=== PATIENT | female | born 1945 | race Caucasian/White ===

== ENCOUNTER 2023-02-02 13:51 | Inpatient (IN) | payer MEDICARE, OTHER ==
[2023-02-02 15:11] LABS: #Eosinphils 0.1 thou/uL (0.0-0.7); #Monocytes 0.8 thou/uL (0.11-0.59); %Basophils 0.3 % (0.0-1.0); %Eosinophils 1.1 % (0.0-10.0); %Lymphocytes 18.3 % (21.0-51.0); %Monocytes 8.5 % (0.0-10.0); %Neutrophils 71.4 % (42.0-75.0); Hematocrit 29.3 % (36.0-47.0); Hemoglobin 10.7 g/dL (12.0-16.0); Mean Corpuscular HGB CONC 36.5 g/dL (32.0-36.0); Mean Corpuscular Hemoglobin 33.1 pg (27.0-31.0); Mean Corpuscular Volume 90.7 fl (78.0-98.0); Mean Platelet Volume 9.7 fL (7.4-10.4); Platelet Count 293 10x3/uL (130-400); RBC Distribution Width 13.1 % (11.5-14.5); Red Blood Cell (RBC) Count 3.23 mill/uL (4.20-5.40); White Blood Cell (WBC) Count 9.7 10x3/uL (4.8-10.8)
[2023-02-02] MEDS ORDERED: Ondansetron PF 4 MG/2 ML Vial ONE (15:28)
[2023-02-02] MEDS ORDERED: Dicyclomine 20 MG TAB ONE (15:28)
[2023-02-02] MEDS ORDERED: Iopamidol-370 76% 500 ML MDV (1 ML CHARGE) ONE (15:30)
[2023-02-02 15:41] LABS: ALT (SGPT) 11 U/L (8-55); AST (SGOT) 21 U/L (5-34); Albumin 3.8 g/dL (3.4-4.8); Alkaline Phosphatase 65 U/L (40-110); Anion Gap 16 mmol/L (10-20); BUN (Urea Nitrogen) 16 mg/dL (9.8-20.1); Bilirubin, Total 0.5 mg/dL (0.2-1.2); Calc. Creatinine Clearance 0 mL/min (70-130); Calcium 9.2 mg/dL (7.8-10.44); Carbon Dioxide 24 mmol/L (23-31); Chloride 102 mmol/L (98-107); Estimated GFR 49; Globulin 2.9 g/dL (2.4-3.5); Glucose 97 mg/dL (83-110); Lipase 13 U/L (8-78); Protein, Total 6.7 g/dL (5.8-8.1); Sodium 140 mmol/L (136-145)
[2023-02-02 16:30] LABS: Bilirubin Negative (Negative); Blood, Urine Negative (Negative); CAUTI Indications for Culture Pelvic or flank pain; Clarity Turbid (Clear); Glucose, Urine (Dipstick) Normal (Negative); Ketone, Urine Negative (Negative); Leukocyte 500 Leu/uL (Negative); Nitrite Negative (Negative); Protein, Urine (Dipstick) 70 mg/dL (Neg-Trace); RBC/HPF 0-3 HPF (0-3); Specific Gravity, Urine 1.019 (1.002-1.036); Urobilinogen Normal mg/dL (Less than 2); WBC/HPF Greater than 50 HPF (0-3)
[2023-02-02] MEDS ORDERED: Potassium Chloride 20 MEQ TAB ONE (16:32)
[2023-02-02] MEDS ORDERED: Potassium Chloride 20 MEQ/100 ML PREMIX BAG ONE (16:36)
[2023-02-02] MEDS ORDERED: Magnesium 2 GM/50 ML BAG (IN WATER) ONE (16:36)
[2023-02-02 16:40] LABS: Bacteria/HPF 2+ HPF (None Seen)
[2023-02-02 16:42] LABS: Urine Culture Reflex Yes Yes
[2023-02-02] MEDS ORDERED: Electrolyte Replacement Protocol 1 EACH FS SCH (18:15)
[2023-02-02] MEDS ORDERED: Acetaminophen 650 MG Suppository PR PRN (18:17)
[2023-02-02] MEDS ORDERED: Ondansetron PF 4 MG/2 ML Vial IVP PRN (18:17)
[2023-02-02] MEDS ORDERED: Ondansetron ODT 4 MG TAB PO PRN (18:17)
[2023-02-02] MEDS ORDERED: Piperacillin/Tazobactam 3.375 GM in Sodium Chloride 0.9% 100 ML IVPB SCH (18:45)
[2023-02-02] MEDS: Potassium Chloride 20 MEQ in Lactated Ringer's 1,000 ML IV SCH (20:29)
[2023-02-02 22:27] LABS: Anion Gap 15 mmol/L (10-20); BUN (Urea Nitrogen) 13 mg/dL (9.8-20.1); Calc. Creatinine Clearance 0 mL/min (70-130); Calcium 9.6 mg/dL (7.8-10.44); Carbon Dioxide 23 mmol/L (23-31); Chloride 106 mmol/L (98-107); Estimated GFR 53; Glucose 124 mg/dL (83-110); Magnesium 2.3 mg/dL (1.6-2.6); Potassium 2.7 mmol/L (3.5-5.1); Sodium 141 mmol/L (136-145)
[2023-02-02 22:31] VITALS: BMI 22.8
[2023-02-02] MEDS: lamoTRIgine 100 MG TAB PO SCH (22:32)
[2023-02-02] MEDS: Atorvastatin Calcium 10 MG TAB PO SCH (22:32)
[2023-02-03 01:04] LABS: Campy jejuni + coli by PCR Negative (Negative); STEC Shiga Toxin 1+2 Negative (Negative); Salmonella spp. by PCR Negative (Negative); Shigella spp + EIEC by PCR Negative (Negative)
[2023-02-03] MEDS: Piperacillin/Tazobactam 3.375 GM in Sodium Chloride 0.9% 100 ML IVPB SCH ×3 (02:48→18:37)
[2023-02-03] MEDS: Levothyroxine Sodium 50 MCG TAB PO SCH (06:40)
[2023-02-03] MEDS: Potassium Chloride 20 MEQ TAB PO SCH ×4 (08:32→22:49)
[2023-02-03 08:39] LABS: #Eosinphils 0.1 thou/uL (0.0-0.7); #Monocytes 0.6 thou/uL (0.11-0.59); #Neutrophils 5.7 thou/uL (1.40-6.50); %Basophils 0.4 % (0.0-1.0); %Eosinophils 1.5 % (0.0-10.0); %Lymphocytes 14.5 % (21.0-51.0); %Monocytes 7.7 % (0.0-10.0); %Neutrophils 75.4 % (42.0-75.0); Hematocrit 26.8 % (36.0-47.0); Hemoglobin 9.7 g/dL (12.0-16.0); Mean Corpuscular HGB CONC 36.2 g/dL (32.0-36.0); Mean Corpuscular Hemoglobin 32.3 pg (27.0-31.0); Mean Corpuscular Volume 89.3 fl (78.0-98.0); Mean Platelet Volume 9.3 fL (7.4-10.4); Platelet Count 259 10x3/uL (130-400); RBC Distribution Width 13.2 % (11.5-14.5); White Blood Cell (WBC) Count 7.6 10x3/uL (4.8-10.8)
[2023-02-03] MEDS: Fish Oil 1,000 MG CAP PO SCH (08:42)
[2023-02-03] MEDS: Ascorbic Acid 500 mg Chewable Tablet PO SCH (08:42)
[2023-02-03] MEDS: Gabapentin 300 MG CAP PO SCH ×3 (08:43→20:23)
[2023-02-03] MEDS: Aspirin 81 mg Enteric Coated Tablet PO SCH (08:44)
[2023-02-03] MEDS: lamoTRIgine 100 MG TAB PO SCH ×2 (08:44→20:23)
[2023-02-03] MEDS: Sertraline 100 MG TAB PO SCH (08:44)
[2023-02-03] MEDS ORDERED: Potassium Chloride 20 MEQ in Lactated Ringer's 1,000 ML IV SCH ×4 (08:45→15:15)
[2023-02-03] MEDS ORDERED: ASCORBIC ACID 250 MG PO SCH (09:00)
[2023-02-03 09:02] LABS: Anion Gap 10 mmol/L (10-20); BUN (Urea Nitrogen) 12 mg/dL (9.8-20.1); Calc. Creatinine Clearance 53 mL/min (70-130); Calcium 8.6 mg/dL (7.8-10.44); Carbon Dioxide 27 mmol/L (23-31); Chloride 108 mmol/L (98-107); Estimated GFR 73; Glucose 114 mg/dL (83-110); Magnesium 1.6 mg/dL (1.6-2.6); Sodium 143 mmol/L (136-145)
[2023-02-03 09:21] LABS: Potassium 2.3 mmol/L (3.5-5.1)
[2023-02-03] MEDS ORDERED: Potassium Chloride 40 MEQ in Premix Bag 1 BAG IVPB SCH ×2 (09:30→16:45)
[2023-02-03] MEDS ORDERED: Magnesium 2 GM/50 ML(in water) 2 GM in Premix Bag 1 BAG IVPB SCH (10:00)
[2023-02-03] MEDS ORDERED: Loperamide HCl 2 MG CAP PO PRN ×2 (11:59)
[2023-02-03] MEDS ORDERED: Sodium Chloride 0.65% Nasal 44 ML BOT EA NARE PRN (11:59)
[2023-02-03] MEDS: Potassium Chloride 20 MEQ in Premix Bag 1 BAG IVPB SCH ×4 (13:37→20:21)
[2023-02-03 14:18] LABS: Phosphorus 2.5 mg/dL (2.3-4.7)
[2023-02-03 14:26] LABS: Potassium 2.5 mmol/L (3.5-5.1)
[2023-02-03] MEDS: Potassium Chloride 20 MEQ in Lactated Ringer's 1,000 ML IV SCH (14:58)
[2023-02-03] MEDS: Atorvastatin Calcium 10 MG TAB PO SCH (20:23)
[2023-02-03 21:40] LABS: Potassium 3.1 mmol/L (3.5-5.1)
[2023-02-03] MEDS ORDERED: GoLYTELY 4,000 ml Bottle PO SCH (22:30)
[2023-02-04] MEDS: Piperacillin/Tazobactam 3.375 GM in Sodium Chloride 0.9% 100 ML IVPB SCH ×2 (01:36→12:52)
[2023-02-04 04:40] LABS: Hematocrit 24.5 % (36.0-47.0); Hemoglobin 8.6 g/dL (12.0-16.0); Platelet Count 254 10x3/uL (130-400)
[2023-02-04 05:06] LABS: Anion Gap 11 mmol/L (10-20); BUN (Urea Nitrogen) 9 mg/dL (9.8-20.1); Calc. Creatinine Clearance 55 mL/min (70-130); Calcium 8.4 mg/dL (7.8-10.44); Carbon Dioxide 23 mmol/L (23-31); Chloride 112 mmol/L (98-107); Estimated GFR 76; Glucose 106 mg/dL (83-110); Potassium 2.8 mmol/L (3.5-5.1); Sodium 143 mmol/L (136-145)
[2023-02-04] MEDS: Potassium Chloride 20 MEQ in Premix Bag 1 BAG IVPB SCH ×3 (05:33→12:52)
[2023-02-04] MEDS: Levothyroxine Sodium 50 MCG TAB PO SCH (05:34)
[2023-02-04] MEDS: Ascorbic Acid 500 mg Chewable Tablet PO SCH (08:20)
[2023-02-04] MEDS: Sertraline 100 MG TAB PO SCH (08:20)
[2023-02-04] MEDS: lamoTRIgine 100 MG TAB PO SCH ×2 (08:20→20:02)
[2023-02-04] MEDS: Fish Oil 1,000 MG CAP PO SCH (08:21)
[2023-02-04] MEDS: Aspirin 81 mg Enteric Coated Tablet PO SCH (08:21)
[2023-02-04] MEDS: Gabapentin 300 MG CAP PO SCH ×3 (08:21→20:02)
[2023-02-04] MEDS: Potassium Chloride 20 MEQ TAB PO SCH ×2 (08:22→12:51)
[2023-02-04] MEDS ORDERED: Piperacillin/Tazobactam 3.375 GM VIAL ONE (10:20)
[2023-02-04] MEDS ORDERED: Sodium Chloride 0.9% 100 ML ONE (10:20)
[2023-02-04] MEDS ORDERED: PROPOFOL 200 MG/20 ML VIAL ONE (10:44)
[2023-02-04] MEDS ORDERED: ePHEDrine Sulfate 50 MG/10 ML VIAL ONE (10:44)
[2023-02-04] MEDS ORDERED: Lidocaine 1% PF 5 ML VIAL ONE (10:44)
[2023-02-04] MEDS: Loperamide HCl 2 MG CAP PO SCH ×3 (12:53→20:02)
[2023-02-04 13:21] LABS: Magnesium 1.3 mg/dL (1.6-2.6); Potassium 3.4 mmol/L (3.5-5.1)
[2023-02-04] MEDS ORDERED: Magnesium Sulfate In Water 4 GM in Premix Bag 1 BAG IVPB SCH (14:15)
[2023-02-04 17:34] LABS: Anion Gap 13 mmol/L (10-20); BUN (Urea Nitrogen) 7 mg/dL (9.8-20.1); Calc. Creatinine Clearance 57 mL/min (70-130); Calcium 8.4 mg/dL (7.8-10.44); Carbon Dioxide 21 mmol/L (23-31); Chloride 114 mmol/L (98-107); Estimated GFR 80; Glucose 104 mg/dL (83-110); Potassium 3.5 mmol/L (3.5-5.1); Sodium 144 mmol/L (136-145)
[2023-02-04] MEDS ORDERED: Potassium Chloride 20 MEQ TAB PO SCH (17:45)
[2023-02-04] MEDS: Haloperidol 1 MG TAB PO SCH (17:59)
[2023-02-04] MEDS: cefTRIAXone\\ROCEPHIN 1 GM in Sodium Chloride 0.9% 100 ML IVPB SCH (18:00)
[2023-02-04] MEDS: Atorvastatin Calcium 10 MG TAB PO SCH (20:02)
[2023-02-04] MEDS ORDERED: QUEtiapine 25 MG TAB PO SCH (21:00)
[2023-02-05] MEDS: Acetaminophen 325 MG TAB PO PRN ×3 (04:30→20:48)
[2023-02-05] MEDS: Levothyroxine Sodium 50 MCG TAB PO SCH (04:31)
[2023-02-05 04:47] LABS: #Eosinphils 0.2 thou/uL (0.0-0.7); #Monocytes 0.6 thou/uL (0.11-0.59); #Neutrophils 5.5 thou/uL (1.40-6.50); %Basophils 0.4 % (0.0-1.0); %Eosinophils 2.1 % (0.0-10.0); %Lymphocytes 21.6 % (21.0-51.0); Hematocrit 25.4 % (36.0-47.0); Mean Corpuscular HGB CONC 35.4 g/dL (32.0-36.0); Mean Corpuscular Hemoglobin 32.7 pg (27.0-31.0); Mean Corpuscular Volume 92.4 fl (78.0-98.0); Mean Platelet Volume 9.6 fL (7.4-10.4); Platelet Count 257 10x3/uL (130-400); RBC Distribution Width 13.6 % (11.5-14.5); Red Blood Cell (RBC) Count 2.75 mill/uL (4.20-5.40); White Blood Cell (WBC) Count 8.1 10x3/uL (4.8-10.8)
[2023-02-05 05:19] LABS: Anion Gap 10 mmol/L (10-20); BUN (Urea Nitrogen) 5 mg/dL (9.8-20.1); Calc. Creatinine Clearance 62 mL/min (70-130); Calcium 8.2 mg/dL (7.8-10.44); Carbon Dioxide 21 mmol/L (23-31); Chloride 114 mmol/L (98-107); Estimated GFR 88; Glucose 108 mg/dL (83-110); Potassium 3.4 mmol/L (3.5-5.1); Sodium 142 mmol/L (136-145)
[2023-02-05] MEDS ORDERED: Potassium Chloride 20 MEQ TAB PO SCH (08:00)
[2023-02-05] MEDS ORDERED: FLU VACC QS2023-24(6MOS UP)/PF 60 MCG/0.5 ML SYRINGE IM ONE (09:00)
[2023-02-05] MEDS: Gabapentin 300 MG CAP PO SCH ×3 (09:25→20:47)
[2023-02-05] MEDS: Ascorbic Acid 500 mg Chewable Tablet PO SCH (09:25)
[2023-02-05] MEDS: Fish Oil 1,000 MG CAP PO SCH (09:25)
[2023-02-05] MEDS: Aspirin 81 mg Enteric Coated Tablet PO SCH (09:25)
[2023-02-05] MEDS: Haloperidol 1 MG TAB PO SCH ×2 (09:27→20:48)
[2023-02-05] MEDS: Loperamide HCl 2 MG CAP PO SCH ×4 (09:27→20:47)
[2023-02-05] MEDS: lamoTRIgine 100 MG TAB PO SCH ×2 (09:27→20:47)
[2023-02-05] MEDS: Sertraline 100 MG TAB PO SCH (09:28)
[2023-02-05] MEDS: cefTRIAXone\\ROCEPHIN 1 GM in Sodium Chloride 0.9% 100 ML IVPB SCH (17:59)
[2023-02-05] MEDS: Atorvastatin Calcium 10 MG TAB PO SCH (20:46)
[2023-02-05 21:25] LABS: #Eosinphils 0.2 thou/uL (0.0-0.7); #Monocytes 0.7 thou/uL (0.11-0.59); #Neutrophils 8.3 thou/uL (1.40-6.50); %Basophils 0.4 % (0.0-1.0); %Lymphocytes 15.6 % (21.0-51.0); %Monocytes 6.3 % (0.0-10.0); %Neutrophils 74.2 % (42.0-75.0); Hematocrit 26.4 % (36.0-47.0); Hemoglobin 9.3 g/dL (12.0-16.0); Mean Corpuscular HGB CONC 35.2 g/dL (32.0-36.0); Mean Corpuscular Hemoglobin 32.9 pg (27.0-31.0); Mean Corpuscular Volume 93.3 fl (78.0-98.0); Mean Platelet Volume 9.9 fL (7.4-10.4); Platelet Count 302 10x3/uL (130-400); RBC Distribution Width 13.3 % (11.5-14.5); Red Blood Cell (RBC) Count 2.83 mill/uL (4.20-5.40); White Blood Cell (WBC) Count 11.2 10x3/uL (4.8-10.8)
[2023-02-05 21:44] LABS: Lactic Acid 0.7 mmol/L (0.5-2.2)
[2023-02-05 21:55] LABS: ALT (SGPT) 14 U/L (8-55); AST (SGOT) 28 U/L (5-34); Albumin 3.4 g/dL (3.4-4.8); Alkaline Phosphatase 60 U/L (40-110); Anion Gap 14 mmol/L (10-20); BUN (Urea Nitrogen) 7 mg/dL (9.8-20.1); Bilirubin, Total 0.2 mg/dL (0.2-1.2); Calc. Creatinine Clearance 56 mL/min (70-130); Calcium 8.1 mg/dL (7.8-10.44); Carbon Dioxide 20 mmol/L (23-31); Chloride 110 mmol/L (98-107); Estimated GFR 77; Globulin 2.2 g/dL (2.4-3.5); Glucose 99 mg/dL (83-110); Potassium 3.5 mmol/L (3.5-5.1); Protein, Total 5.6 g/dL (5.8-8.1); Sodium 140 mmol/L (136-145)
[2023-02-06] MEDS ORDERED: Ipratropium/Albuterol 3 ML NEB NEB PRN (02:18)
[2023-02-06 04:13] LABS: Adenovirus F 40-41 Not Detected (Not Detected); Astrovirus Not Detected (Not Detected); C. difficile toxin A+B Not Detected (Not Detected); Campylobacter by PCR Not Detected (Not Detected); Cryptosporidium Not Detected (Not Detected); Cyclospora cayetanensis Not Detected (Not Detected); Entamoeba histolytica Not Detected (Not Detected); Enteroaggregative E. coli Not Detected (Not Detected); Enteropathogenic E. coli Not Detected (Not Detected); Enterotoxigenic E. coli Not Detected (Not Detected); Giardia lamblia Not Detected (Not Detected); Norovirus GI-GII Not Detected (Not Detected); Plesiomonas shigelloides Not Detected (Not Detected); Rotavirus A Not Detected (Not Detected); Salmonella Not Detected (Not Detected); Sapovirus Not Detected (Not Detected); Shiga-toxin-producing E coli Not Detected (Not Detected); Shigella/Enteroinvasive E coli Not Detected (Not Detected); Vibrio Not Detected (Not Detected); Vibrio cholerae Not Detected (Not Detected); Yersinia enterocolitica Not Detected (Not Detected)
[2023-02-06 05:05] LABS: #Eosinphils 0.2 thou/uL (0.0-0.7); #Monocytes 0.7 thou/uL (0.11-0.59); #Neutrophils 7.8 thou/uL (1.40-6.50); %Basophils 0.4 % (0.0-1.0); %Eosinophils 1.5 % (0.0-10.0); %Lymphocytes 12.1 % (21.0-51.0); %Monocytes 6.9 % (0.0-10.0); %Neutrophils 77.5 % (42.0-75.0); Hematocrit 25.7 % (36.0-47.0); Hemoglobin 8.8 g/dL (12.0-16.0); Mean Corpuscular HGB CONC 34.2 g/dL (32.0-36.0); Mean Corpuscular Volume 93.5 fl (78.0-98.0); Platelet Count 275 10x3/uL (130-400); RBC Distribution Width 13.4 % (11.5-14.5); Red Blood Cell (RBC) Count 2.75 mill/uL (4.20-5.40)
[2023-02-06 05:27] LABS: Anion Gap 13 mmol/L (10-20); BUN (Urea Nitrogen) 6 mg/dL (9.8-20.1); Calc. Creatinine Clearance 59 mL/min (70-130); Calcium 8.2 mg/dL (7.8-10.44); Carbon Dioxide 21 mmol/L (23-31); Chloride 109 mmol/L (98-107); Estimated GFR 82; Glucose 98 mg/dL (83-110); Sodium 140 mmol/L (136-145)
[2023-02-06] MEDS ORDERED: Potassium Chloride 20 MEQ TAB PO SCH ×2 (08:00→16:00)
[2023-02-06] MEDS: Levothyroxine Sodium 50 MCG TAB PO SCH (08:14)
[2023-02-06] MEDS: Ascorbic Acid 500 mg Chewable Tablet PO SCH (08:31)
[2023-02-06] MEDS: Metamucil PACK PO SCH (08:31)
[2023-02-06] MEDS: Fish Oil 1,000 MG CAP PO SCH (08:31)
[2023-02-06] MEDS: Loperamide HCl 2 MG CAP PO SCH ×4 (08:31→20:37)
[2023-02-06] MEDS: Sertraline 100 MG TAB PO SCH (08:31)
[2023-02-06] MEDS: Haloperidol 1 MG TAB PO SCH ×2 (08:31→20:36)
[2023-02-06] MEDS: lamoTRIgine 100 MG TAB PO SCH ×2 (08:31→20:36)
[2023-02-06] MEDS: Aspirin 81 mg Enteric Coated Tablet PO SCH (08:32)
[2023-02-06] MEDS: Doxycycline 100 MG CAP PO SCH ×2 (08:32→20:37)
[2023-02-06] MEDS: Gabapentin 300 MG CAP PO SCH ×3 (08:32→20:36)
[2023-02-06 13:36] LABS: Potassium 3.4 mmol/L (3.5-5.1)
[2023-02-06] MEDS: cefTRIAXone\\ROCEPHIN 1 GM in Sodium Chloride 0.9% 100 ML IVPB SCH (17:33)
[2023-02-06] MEDS: Atorvastatin Calcium 10 MG TAB PO SCH (20:37)
[2023-02-07] MEDS: Benzonatate 100 MG CAP PO PRN ×2 (01:56→22:58)
[2023-02-07] MEDS: Acetaminophen 325 MG TAB PO PRN ×3 (01:56→23:55)
[2023-02-07] MEDS: Levothyroxine Sodium 50 MCG TAB PO SCH (05:30)
[2023-02-07 06:11] LABS: #Basophils 0.1 thou/uL (0.0-0.2); #Eosinphils 0.2 thou/uL (0.0-0.7); #Monocytes 0.8 thou/uL (0.11-0.59); #Neutrophils 7.4 thou/uL (1.40-6.50); %Basophils 0.6 % (0.0-1.0); %Eosinophils 2.3 % (0.0-10.0); %Lymphocytes 18.4 % (21.0-51.0); %Monocytes 7.3 % (0.0-10.0); %Neutrophils 69.7 % (42.0-75.0); Hematocrit 26.5 % (36.0-47.0); Hemoglobin 9.2 g/dL (12.0-16.0); Mean Corpuscular HGB CONC 34.7 g/dL (32.0-36.0); Mean Corpuscular Hemoglobin 32.1 pg (27.0-31.0); Mean Corpuscular Volume 92.3 fl (78.0-98.0); Mean Platelet Volume 9.7 fL (7.4-10.4); Platelet Count 261 10x3/uL (130-400); RBC Distribution Width 13.1 % (11.5-14.5); Red Blood Cell (RBC) Count 2.87 mill/uL (4.20-5.40); White Blood Cell (WBC) Count 10.6 10x3/uL (4.8-10.8)
[2023-02-07 06:38] LABS: Anion Gap 12 mmol/L (10-20); BUN (Urea Nitrogen) 7 mg/dL (9.8-20.1); Calc. Creatinine Clearance 59 mL/min (70-130); Calcium 8.2 mg/dL (7.8-10.44); Carbon Dioxide 21 mmol/L (23-31); Chloride 111 mmol/L (98-107); Estimated GFR 84; Glucose 97 mg/dL (83-110); Potassium 3.3 mmol/L (3.5-5.1); Sodium 141 mmol/L (136-145)
[2023-02-07] MEDS ORDERED: Potassium Chloride 20 MEQ TAB PO SCH (08:00)
[2023-02-07] MEDS: Aspirin 81 mg Enteric Coated Tablet PO SCH (09:07)
[2023-02-07] MEDS: Sertraline 100 MG TAB PO SCH (09:07)
[2023-02-07] MEDS: Ascorbic Acid 500 mg Chewable Tablet PO SCH (09:07)
[2023-02-07] MEDS: Fish Oil 1,000 MG CAP PO SCH (09:07)
[2023-02-07] MEDS: Loperamide HCl 2 MG CAP PO SCH ×4 (09:07→21:12)
[2023-02-07] MEDS: Gabapentin 300 MG CAP PO SCH ×3 (09:08→21:12)
[2023-02-07] MEDS: Haloperidol 1 MG TAB PO SCH ×2 (09:08→21:12)
[2023-02-07] MEDS: lamoTRIgine 100 MG TAB PO SCH ×2 (09:10→21:12)
[2023-02-07] MEDS: Metamucil PACK PO SCH ×2 (09:11→09:29)
[2023-02-07] MEDS: Atorvastatin Calcium 10 MG TAB PO SCH (21:12)
[2023-02-08] MEDS: Levothyroxine Sodium 50 MCG TAB PO SCH (05:13)
[2023-02-08 05:52] LABS: #Eosinphils 0.3 thou/uL (0.0-0.7); #Monocytes 0.6 thou/uL (0.11-0.59); #Neutrophils 5.3 thou/uL (1.40-6.50); %Basophils 0.5 % (0.0-1.0); %Lymphocytes 21.5 % (21.0-51.0); %Monocytes 7.3 % (0.0-10.0); %Neutrophils 64.5 % (42.0-75.0); Hematocrit 26.7 % (36.0-47.0); Hemoglobin 9.4 g/dL (12.0-16.0); Mean Corpuscular HGB CONC 35.2 g/dL (32.0-36.0); Mean Corpuscular Hemoglobin 32.6 pg (27.0-31.0); Mean Corpuscular Volume 92.7 fl (78.0-98.0); Mean Platelet Volume 9.5 fL (7.4-10.4); Platelet Count 286 10x3/uL (130-400); RBC Distribution Width 13.2 % (11.5-14.5); Red Blood Cell (RBC) Count 2.88 mill/uL (4.20-5.40); White Blood Cell (WBC) Count 8.2 10x3/uL (4.8-10.8)
[2023-02-08 06:25] LABS: Anion Gap 12 mmol/L (10-20); BUN (Urea Nitrogen) 5 mg/dL (9.8-20.1); Calc. Creatinine Clearance 59 mL/min (70-130); Calcium 8.3 mg/dL (7.8-10.44); Carbon Dioxide 22 mmol/L (23-31); Chloride 111 mmol/L (98-107); Estimated GFR 82; Glucose 93 mg/dL (83-110); Sodium 142 mmol/L (136-145)
[2023-02-08] MEDS ORDERED: Potassium Chloride 20 MEQ TAB PO SCH (08:00)
[2023-02-08] MEDS: Loperamide HCl 2 MG CAP PO SCH ×3 (09:11→16:57)
[2023-02-08] MEDS: Metamucil PACK PO SCH (09:11)
[2023-02-08] MEDS: Ascorbic Acid 500 mg Chewable Tablet PO SCH (09:11)
[2023-02-08] MEDS: Gabapentin 300 MG CAP PO SCH ×2 (09:11→14:49)
[2023-02-08] MEDS: Aspirin 81 mg Enteric Coated Tablet PO SCH (09:11)
[2023-02-08] MEDS: Fish Oil 1,000 MG CAP PO SCH (09:12)
[2023-02-08] MEDS: Sertraline 100 MG TAB PO SCH (09:12)
[2023-02-08] MEDS: lamoTRIgine 100 MG TAB PO SCH (09:12)
[2023-02-08] MEDS: Haloperidol 1 MG TAB PO SCH (09:12)
[2023-02-08 14:44] LABS: Magnesium 0.9 mg/dL (1.6-2.6)
[2023-02-08] MEDS ORDERED: Magnesium Sulfate In Water 4 GM in Premix Bag 1 BAG IVPB SCH (15:30)
[2023-02-08 17:39] VITALS: BP 163/78; TEMP 98.1
== END 2023-02-08 18:07 | disposition home or self-care (01) | DRG 391 ==
LOC: ERS 13:51 → 2SW 16:59 → OBSVTOIN 02-03 12:05 → T4-B 02-06 13:58
PROVIDERS: ADMIT Family Medicine; ATTEND Family Medicine
PROC: 0DBG8ZX Excision of Left Large Intestine, Via Natural or Artificial Opening Endoscopic, Diagnostic (ICD-10-PCS; principal; 2023-02-04)
PROC: 0DBF8ZX Excision of Right Large Intestine, Via Natural or Artificial Opening Endoscopic, Diagnostic (ICD-10-PCS; 2023-02-04)
PROC: 3E033XZ Introduction of Vasopressor into Peripheral Vein, Percutaneous Approach (ICD-10-PCS; 2023-02-04)
DX: K52.832 Lymphocytic colitis (principal); G93.41 Metabolic encephalopathy; N39.0 Urinary tract infection, site not specified; K52.9 Noninfective gastroenteritis and colitis, unspecified; K57.30 Diverticulosis of large intestine without perforation or abscess without bleeding; I10 Essential (primary) hypertension; E78.5 Hyperlipidemia, unspecified; I69.320 Aphasia following cerebral infarction; E03.9 Hypothyroidism, unspecified; F31.9 Bipolar disorder, unspecified; E87.6 Hypokalemia; E83.42 Hypomagnesemia; R73.03 Prediabetes; D64.9 Anemia, unspecified; J30.2 Other seasonal allergic rhinitis; N32.89 Other specified disorders of bladder; R60.0 Localized edema; B96.1 Klebsiella pneumoniae [K. pneumoniae] as the cause of diseases classified elsewhere; Z90.710 Acquired absence of both cervix and uterus; Z98.49 Cataract extraction status, unspecified eye; Z98.890 Other specified postprocedural states; Z98.1 Arthrodesis status; Z82.49 Family history of ischemic heart disease and other diseases of the circulatory system; Z80.51 Family history of malignant neoplasm of kidney; Z88.5 Allergy status to narcotic agent; Z88.8 Allergy status to other drugs, medicaments and biological substances; Z79.890 Hormone replacement therapy; Z79.899 Other long term (current) drug therapy
CPT/HCPCS: 36415; 36416; 51702; 71045; 74177; 80048; 80053; 81001; 83605; 83690; 83735; 84100; 85014; 85018; 85025; 85049; 87040; 87077; 87086; 87186; 87324; 87449; 87505; 87507; 88305; 93005; 93010; 94640; 94760; 96361; 96365; 96366; 96368; 96372; 96375; 96376; G0378; J0696; J1650; J2405; J2543; J2704; J3475; J3480; J3490; J7120; J7620; Q9967

== ENCOUNTER 2023-12-21 13:52 | Outpatient (CLI) | payer MEDICARE, OTHER | END 2023-12-21 13:53 | disposition home or self-care (01) | LOC: BICRAD 13:52 | PROVIDERS: ATTEND Nurse Practitioner Family | DX: M25.561 Pain in right knee (principal) ==

== ENCOUNTER 2023-12-26 15:26 | Inpatient (IN) | payer MEDICARE ==
[2023-12-26] MEDS ORDERED: Ondansetron PF 4 MG/2 ML Vial ONE (15:44)
[2023-12-26 16:10] LABS: Hemoglobin 12.1 g/dL (12.0-16.0); Mean Corpuscular HGB CONC 35.6 g/dL (32.0-36.0); Mean Corpuscular Hemoglobin 31.3 pg (27.0-31.0); Mean Corpuscular Volume 88.1 fL (78.0-98.0); Platelet Count 375 10x3/uL (130-400); RBC Distribution Width 12.8 % (11.5-14.5); Red Blood Cell (RBC) Count 3.86 mill/uL (4.20-5.40)
[2023-12-26] MEDS ORDERED: metroNIDAZOLE 500 MG (100 mL) BAG ONE (16:21)
[2023-12-26] MEDS ORDERED: LevoFLOXacin 750 mg/D5W 150 ml Premix Bag ONE (16:21)
[2023-12-26 16:37] LABS: ALT (SGPT) 21 U/L (8-55); AST (SGOT) 42 U/L (5-34); Albumin 2.8 g/dL (3.4-4.8); Alkaline Phosphatase 98 U/L (40-110); Anion Gap 26 mmol/L (10-20); BUN (Urea Nitrogen) 78 mg/dL (9.8-20.1); Bilirubin, Total 0.5 mg/dL (0.2-1.2); CK (CPK) 333 U/L (29-168); Calc. Creatinine Clearance 0 mL/min (70-130); Calcium 9.7 mg/dL (7.8-10.44); Carbon Dioxide 18 mmol/L (23-31); Chloride 93 mmol/L (98-107); Estimated GFR 11; Globulin 4.7 g/dL (2.4-3.5); Glucose 152 mg/dL (83-110); Lipase 22 U/L (8-78); Potassium 4.9 mmol/L (3.5-5.1); Protein, Total 7.5 g/dL (5.8-8.1); Sodium 132 mmol/L (136-145)
[2023-12-26 16:39] LABS: Troponin I 0.083 ng/mL (< 0.028)
[2023-12-26 16:44] LABS: SARS-CoV-2 E Target Negative; SARS-CoV-2 N2 Target Negative; SARS-CoV-2 NAA Rapid Test Not Detected (NotDetected); SARS-CoV-2 RdRP gene Negative
[2023-12-26 16:45] LABS: Bacteria/HPF None Seen HPF (None Seen); Bilirubin Negative (Negative); Blood, Urine 1+ (Negative); CAUTI Indications for Culture Alt mental st,lethar; Glucose, Urine (Dipstick) Normal (Negative); Ketone, Urine Trace mg/dL (Negative); Leukocyte 75 Leu/uL (Negative); Nitrite Negative (Negative); Protein, Urine (Dipstick) 30 mg/dL (Neg-Trace); Specific Gravity, Urine 1.018 (1.002-1.036); Squamous Epithelial 0-3 HPF (0-3); Urobilinogen Normal mg/dL (Less than 2)
[2023-12-26 16:48] LABS: Clarity Hazy (Clear)
[2023-12-26 16:50] LABS: Urine Culture Reflex No No
[2023-12-26 16:52] LABS: Band 37 % (5-11); Large Platelets 3.7 % (0-5); Lymphocytes 7 % (21-51); Monocytes 7 % (0-10); Neutrophil 49 % (42-75); Plasma Cells 1 % (0-0); Platelet Adequacy Comment Platelets Normal; Polychromasia SLIGHT = 2-3 cells HPF (0-2); Smudge Cells 1.9 %
[2023-12-26] MEDS ORDERED: Dexamethasone 10 MG/ML VIAL ONE (17:25)
[2023-12-26] MEDS ORDERED: Glucagon 1 MG/ML KIT IM PRN (18:00)
[2023-12-26] MEDS ORDERED: Dextrose 50% Abboject 50 ML SYRINGE SLOW IVP PRN (18:00)
[2023-12-26] MEDS ORDERED: Insulin Lispro 100 UNIT/ML 10 ML VIAL SC PRN (18:00)
[2023-12-26] MEDS ORDERED: Dextrose 5% in Water 1,000 ML IV PRN (18:00)
[2023-12-26] MEDS ORDERED: Acetaminophen 650 MG Suppository PR PRN (18:13)
[2023-12-26 19:36] LABS: Lactic Acid 2.9 mmol/L (0.5-2.2)
[2023-12-26 19:42] LABS: Troponin I 0.046 ng/mL (< 0.028)
[2023-12-26 21:15] VITALS: BMI 25.0
[2023-12-26] MEDS: Sodium Chloride 0.9% 1,000 ML IV SCH ×2 (21:35→21:36)
[2023-12-26] MEDS: Piperacillin/Tazobactam 3.375 GM in Sodium Chloride 0.9% 100 ML IVPB SCH (21:35)
[2023-12-26] MEDS: Famotidine/PF 20 mg/2ml Vial SLOW IVP SCH (21:36)
[2023-12-26] MEDS: Heparin 5,000 UNITS/ML VIAL SC SCH (21:52)
[2023-12-26] MEDS: Albumin 25% 25 GM (100 mL) BOT IVPB SCH (22:08)
[2023-12-26 23:00] LABS: Troponin I 0.039 ng/mL (< 0.028)
[2023-12-26] MEDS: metroNIDAZOLE 500 MG in Premix 1 BAG IVPB SCH (23:15)
[2023-12-26 23:17] LABS: ALT (SGPT) 14 U/L (8-55); AST (SGOT) 29 U/L (5-34); Alkaline Phosphatase 69 U/L (40-110); Anion Gap 17 mmol/L (10-20); BUN (Urea Nitrogen) 70 mg/dL (9.8-20.1); Bilirubin, Total 0.4 mg/dL (0.2-1.2); Calc. Creatinine Clearance 16 mL/min (70-130); Calcium 7.3 mg/dL (7.8-10.44); Carbon Dioxide 15 mmol/L (23-31); Chloride 106 mmol/L (98-107); Estimated GFR 16; Globulin 3.1 g/dL (2.4-3.5); Glucose 145 mg/dL (83-110); Potassium 4.3 mmol/L (3.5-5.1); Protein, Total 5.1 g/dL (5.8-8.1); Sodium 134 mmol/L (136-145)
[2023-12-27] MEDS ORDERED: Piperacillin/Tazobactam 3.375 GM in Sodium Chloride 0.9% 100 ML IVPB SCH (01:00)
[2023-12-27] MEDS: Piperacillin/Tazobactam 3.375 GM in Sodium Chloride 0.9% 100 ML IVPB SCH (01:03)
[2023-12-27 05:46] LABS: Hematocrit 27.4 % (36.0-47.0); Hemoglobin 9.1 g/dL (12.0-16.0); Mean Corpuscular HGB CONC 33.2 g/dL (32.0-36.0); Mean Corpuscular Hemoglobin 31.1 pg (27.0-31.0); Mean Corpuscular Volume 93.5 fL (78.0-98.0); Mean Platelet Volume 9.7 fL (7.4-10.4); Platelet Count 241 10x3/uL (130-400); RBC Distribution Width 12.8 % (11.5-14.5); Red Blood Cell (RBC) Count 2.93 mill/uL (4.20-5.40)
[2023-12-27] MEDS: Levothyroxine Sodium 50 MCG TAB PO SCH (05:58)
[2023-12-27 06:11] LABS: Band 27 % (5-11); Lymphocytes 3 % (21-51); Monocytes 5 % (0-10); Neutrophil 65 % (42-75); Platelet Adequacy Comment Platelets Normal; RBC Morphology Within Normal Limits
[2023-12-27 06:31] LABS: ALT (SGPT) 13 U/L (8-55); AST (SGOT) 25 U/L (5-34); Albumin 2.2 g/dL (3.4-4.8); Alkaline Phosphatase 64 U/L (40-110); Anion Gap 16 mmol/L (10-20); BUN (Urea Nitrogen) 67 mg/dL (9.8-20.1); Bilirubin, Total 0.4 mg/dL (0.2-1.2); Calc. Creatinine Clearance 18 mL/min (70-130); Calcium 7.6 mg/dL (7.8-10.44); Carbon Dioxide 15 mmol/L (23-31); Chloride 110 mmol/L (98-107); Estimated GFR 18; Glucose 148 mg/dL (83-110); Magnesium 1.6 mg/dL (1.6-2.6); Potassium 4.1 mmol/L (3.5-5.1); Protein, Total 5.2 g/dL (5.8-8.1); Sodium 137 mmol/L (136-145)
[2023-12-27] MEDS ORDERED: Enoxaparin 30 MG (0.3 mL) SYRINGE SC SCH ×2 (09:00)
[2023-12-27] MEDS ORDERED: LAMOTRIGINE 100 MG PO SCH (09:21)
[2023-12-27] MEDS ORDERED: Calcium Carbonate 500 MG ChewTAB PO PRN (09:22)
[2023-12-27] MEDS: lamoTRIgine 100 MG TAB PO SCH (12:53)
[2023-12-27 15:21] LABS: Campy jejuni + coli by PCR Negative (Negative); STEC Shiga Toxin 1+2 Negative (Negative); Salmonella spp. by PCR Negative (Negative); Shigella spp + EIEC by PCR Negative (Negative)
[2023-12-28 06:01] LABS: Hematocrit 27.8 % (36.0-47.0); Hemoglobin 9.1 g/dL (12.0-16.0); Mean Corpuscular HGB CONC 32.7 g/dL (32.0-36.0); Mean Corpuscular Volume 94.6 fL (78.0-98.0); Mean Platelet Volume 10.2 fL (7.4-10.4); Platelet Count 280 10x3/uL (130-400); Red Blood Cell (RBC) Count 2.94 mill/uL (4.20-5.40)
[2023-12-28 06:05] LABS: Anion Gap 14 mmol/L (10-20); BUN (Urea Nitrogen) 50 mg/dL (9.8-20.1); Calc. Creatinine Clearance 24 mL/min (70-130); Calcium 7.9 mg/dL (7.8-10.44); Carbon Dioxide 15 mmol/L (23-31); Chloride 115 mmol/L (98-107); Estimated GFR 26; Glucose 127 mg/dL (83-110); Potassium 3.3 mmol/L (3.5-5.1); Sodium 141 mmol/L (136-145)
[2023-12-28] MEDS ORDERED: Levothyroxine Sodium 50 MCG TAB PO SCH (07:30)
[2023-12-28] MEDS: Sodium Bicarbonate 70 MEQ in Sodium Chloride 0.45% 1,000 ML IV SCH (09:31)
[2023-12-28] MEDS: Loperamide HCl 2 MG CAP PO SCH (09:31)
[2023-12-28] MEDS: Potassium Chloride 20 MEQ TAB PO SCH (09:32)
[2023-12-28] MEDS: Acetaminophen 325 MG TAB PO PRN (14:51)
[2023-12-28] MEDS: Ondansetron PF 4 MG/2 ML Vial IVP PRN (16:51)
[2023-12-28] MEDS: hydrOXYzine 25 MG TAB PO SCH (23:12)
[2023-12-29 06:26] LABS: Anion Gap 10 mmol/L (10-20); BUN (Urea Nitrogen) 37 mg/dL (9.8-20.1); Calc. Creatinine Clearance 33 mL/min (70-130); Calcium 7.5 mg/dL (7.8-10.44); Carbon Dioxide 18 mmol/L (23-31); Chloride 118 mmol/L (98-107); Estimated GFR 35; Glucose 108 mg/dL (83-110); Potassium 3.3 mmol/L (3.5-5.1); Sodium 143 mmol/L (136-145)
[2023-12-29] MEDS ORDERED: Loperamide HCl 2 MG CAP PO PRN (13:14)
[2023-12-29] MEDS: Gabapentin 300 MG CAP PO SCH (20:54)
[2023-12-29] MEDS: Mirtazapine 15 MG TAB PO SCH (20:55)
[2023-12-29] MEDS ORDERED: Non-Formulary Item 1 EACH (Mirtazapine [Mirtazapine] 15 MG Tab) PO SCH (21:00)
[2023-12-29] MEDS: Sodium Bicarbonate 70 MEQ in Sodium Chloride 0.45% 1,000 ML IV SCH (22:42)
[2023-12-30 06:09] LABS: Hemoglobin A1c 5.5 % (4.0-6.0)
[2023-12-30 06:10] LABS: Hematocrit 26.5 % (36.0-47.0); Hemoglobin 8.8 g/dL (12.0-16.0); Mean Corpuscular HGB CONC 33.2 g/dL (32.0-36.0); Mean Corpuscular Hemoglobin 31.3 pg (27.0-31.0); Mean Corpuscular Volume 94.3 fL (78.0-98.0); Mean Platelet Volume 9.7 fL (7.4-10.4); Platelet Count 204 10x3/uL (130-400); RBC Distribution Width 13.3 % (11.5-14.5); Red Blood Cell (RBC) Count 2.81 mill/uL (4.20-5.40)
[2023-12-30 06:15] LABS: Anion Gap 12 mmol/L (10-20); BUN (Urea Nitrogen) 22 mg/dL (9.8-20.1); Calc. Creatinine Clearance 54 mL/min (70-130); Carbon Dioxide 23 mmol/L (23-31); Chloride 111 mmol/L (98-107); Estimated GFR 61; Glucose 90 mg/dL (83-110); Sodium 143 mmol/L (136-145)
[2023-12-30 06:49] LABS: Anisocytosis SLIGHT = 6-15 cells HPF (0-5); Band 14 % (5-11); Eosinophils 3 % (0-10); Lymphocytes 8 % (21-51); Macrocytosis SLIGHT = 6-15 cells HPF (0-5); Metamyelocyte 7 % (0-0); Monocytes 1 % (0-10); Myelocyte 5 % (0-0); Neutrophil 63 % (42-75); Platelet Adequacy Comment Platelets Normal; Polychromasia SLIGHT = 2-3 cells HPF (0-2); Smudge Cells 24.5 %
[2023-12-30] MEDS ORDERED: Non-Formulary Item 1 EACH (Cyclobenzaprine Hcl [Cyclobenzaprine Hcl] 5 MG Tablet) PO SCH (09:00)
[2023-12-30] MEDS ORDERED: Sertraline 100 MG TAB PO SCH (09:00)
[2023-12-30] MEDS: Sertraline 25 MG TAB PO SCH (09:20)
[2023-12-30] MEDS: Cyclobenzaprine 10 MG TAB PO SCH (09:20)
[2023-12-30] MEDS: Amlodipine 10 MG TAB PO SCH (09:21)
[2023-12-30] MEDS: Piperacillin/Tazobactam 3.375 GM in Sodium Chloride 0.9% 100 ML IVPB SCH ×2 (10:51→18:03)
[2023-12-30] MEDS: Potassium Bicarbonate/Cit Ac 20 MEQ TAB PO SCH (13:28)
[2023-12-30] MEDS: Diphenoxylate HCl/Atropine Tablet PO PRN (18:03)
[2023-12-30] MEDS: Famotidine 20 MG TAB PO SCH (20:59)
[2023-12-31] MEDS: Potassium Chloride 20 MEQ TAB PO SCH (09:08)
[2023-12-31 15:49] VITALS: BP 160/92; TEMP 98
== END 2023-12-31 15:58 | disposition home or self-care (01) | DRG 871 ==
LOC: ERS 15:26 → IMCU/EMU 18:13 → MSONC 12-28 14:28
PROVIDERS: ADMIT Internal Medicine; ATTEND Family Medicine
PROC: 3E03329 Introduction of Other Anti-infective into Peripheral Vein, Percutaneous Approach (ICD-10-PCS; principal; 2023-12-26)
PROC: 30233J1 Transfusion of Nonautologous Serum Albumin into Peripheral Vein, Percutaneous Approach (ICD-10-PCS; 2023-12-26)
DX: A41.9 Sepsis, unspecified organism (principal); I21.A1 Myocardial infarction type 2; N17.9 Acute kidney failure, unspecified; E87.1 Hypo-osmolality and hyponatremia; E87.20 Acidosis, unspecified; K52.9 Noninfective gastroenteritis and colitis, unspecified; E86.0 Dehydration; K52.832 Lymphocytic colitis; D63.8 Anemia in other chronic diseases classified elsewhere; E03.9 Hypothyroidism, unspecified; E78.5 Hyperlipidemia, unspecified; Z96.651 Presence of right artificial knee joint; E05.80 Other thyrotoxicosis without thyrotoxic crisis or storm; E87.8 Other disorders of electrolyte and fluid balance, not elsewhere classified; Z88.5 Allergy status to narcotic agent; Z79.899 Other long term (current) drug therapy; Z79.890 Hormone replacement therapy; Z90.710 Acquired absence of both cervix and uterus; Z98.41 Cataract extraction status, right eye; Z98.42 Cataract extraction status, left eye; Z98.1 Arthrodesis status
CPT/HCPCS: 36415; 36416; 51701; 71045; 74176; 80048; 80053; 81001; 82550; 83036; 83605; 83690; 83735; 84439; 84443; 84484; 85025; 85027; 87040; 87086; 87324; 87449; 87505; 93005; 96361; 96365; 96366; 96375; J1100; J1644; J1956; J2405; J2543; J3490; J7030; P9047; U0002

== ENCOUNTER 2024-02-04 03:43 | Inpatient (IN) | payer MEDICARE ==
[2024-02-04 04:22] LABS: #Basophils 0.08 10x3/uL (0.0-0.2); %Basophils 0.9 % (0.0-1.0); %Lymphocytes 41.4 % (21.0-51.0); %Monocytes 7.7 % (0.0-10.0); %Neutrophils 47.1 % (42.0-75.0); Hematocrit 31.5 % (36.0-47.0); Hemoglobin 10.7 g/dL (12.0-16.0); Mean Corpuscular Hemoglobin 30.9 pg (27.0-31.0); Platelet Count 183 10x3/uL (130-400); RBC Distribution Width 15.5 % (11.5-14.5); Red Blood Cell (RBC) Count 3.46 mill/uL (4.20-5.40)
[2024-02-04] MEDS ORDERED: Ondansetron PF 4 MG/2 ML Vial ONE (04:32)
[2024-02-04 04:34] LABS: Bacteria/HPF 4+ HPF (None Seen); Bilirubin Negative (Negative); Blood, Urine Negative (Negative); CAUTI Indications for Culture Alt mental st,lethar; Clarity Turbid (Clear); Glucose, Urine (Dipstick) Normal (Negative); Ketone, Urine Negative (Negative); Leukocyte 500 Leu/uL (Negative); Nitrite Negative (Negative); Protein, Urine (Dipstick) 30 mg/dL (Neg-Trace); RBC/HPF 0-3 HPF (0-3); Specific Gravity, Urine 1.017 (1.002-1.036); Transitional Epithelial 0-3 HPF (None Seen); Urobilinogen Normal mg/dL (Less than 2); WBC/HPF Greater than 50 HPF (0-3)
[2024-02-04 04:36] LABS: Urine Culture Reflex Yes Yes
[2024-02-04 04:37] LABS: ALT (SGPT) 24 U/L (8-55); AST (SGOT) 35 U/L (5-34); Albumin 2.2 g/dL (3.4-4.8); Alkaline Phosphatase 140 U/L (40-110); Anion Gap 16 mmol/L (10-20); BUN (Urea Nitrogen) 22 mg/dL (9.8-20.1); Bilirubin, Total 0.5 mg/dL (0.2-1.2); Calc. Creatinine Clearance 0 mL/min (70-130); Carbon Dioxide 20 mmol/L (23-31); Chloride 100 mmol/L (98-107); Estimated GFR 38; Globulin 3.7 g/dL (2.4-3.5); Glucose 105 mg/dL (83-110); Lipase 8 U/L (8-78); Magnesium 1.1 mg/dL (1.6-2.6); Potassium 4.2 mmol/L (3.5-5.1); Protein, Total 5.9 g/dL (5.8-8.1); Sodium 132 mmol/L (136-145)
[2024-02-04 04:39] LABS: INR-International Normal Ratio 1.2; Prothrombin Time 15.3 sec (12.0-14.7)
[2024-02-04 04:40] LABS: PTT 36.9 sec (22.9-36.1)
[2024-02-04 04:43] LABS: Troponin I Less than 0.010 ng/mL (< 0.028)
[2024-02-04] MEDS ORDERED: Magnesium 2 GM/50 ML BAG (IN WATER) ONE (04:55)
[2024-02-04] MEDS ORDERED: OLANZapine 10 MG VIAL IM ONE (05:10)
[2024-02-04] MEDS ORDERED: Sterile Water 10 ML ONE (05:11)
[2024-02-04 07:09] LABS: Lactic Acid 0.94 mmol/L (0.5-2.2)
[2024-02-04] MEDS ORDERED: Sodium Chloride 0.9% 100 ML ONE (08:54)
[2024-02-04] MEDS ORDERED: cefTRIAXone (ROCEPHIN) 1 GM VIAL ONE (08:54)
[2024-02-04] MEDS: Sodium Chloride 0.9% 1,000 ML IV SCH (09:03)
[2024-02-04] MEDS ORDERED: Acetaminophen 500 MG TAB PO PRN (11:14)
[2024-02-04] MEDS ORDERED: Acetaminophen 650 MG Suppository PR PRN (11:14)
[2024-02-04] MEDS ORDERED: Ondansetron ODT 4 MG TAB PO PRN (11:14)
[2024-02-04 17:47] VITALS: BMI 21.4
[2024-02-04] MEDS: Gabapentin 100 MG CAP PO SCH (22:40)
[2024-02-04] MEDS: lamoTRIgine 100 MG TAB PO SCH (22:40)
[2024-02-04] MEDS: Magnesium Oxide 400 MG TAB PO SCH (22:40)
[2024-02-05 04:28] LABS: #Basophils 0.04 10x3/uL (0.0-0.2); %Basophils 0.9 % (0.0-1.0); %Eosinophils 4.6 % (0.0-10.0); %Lymphocytes 43.5 % (21.0-51.0); %Monocytes 10.3 % (0.0-10.0); %Neutrophils 39.6 % (42.0-75.0); Hematocrit 28.8 % (36.0-47.0); Hemoglobin 8.5 g/dL (12.0-16.0); Mean Corpuscular HGB CONC 29.5 g/dL (32.0-36.0); Mean Corpuscular Hemoglobin 30.7 pg (27.0-31.0); Mean Platelet Volume 9.2 fL (7.4-10.4); Platelet Count 123 10x3/uL (130-400); RBC Distribution Width 16.2 % (11.5-14.5); Red Blood Cell (RBC) Count 2.77 mill/uL (4.20-5.40)
[2024-02-05] MEDS: Levothyroxine Sodium 50 MCG TAB PO SCH (05:39)
[2024-02-05 07:29] LABS: ALT (SGPT) 19 U/L (8-55); AST (SGOT) 31 U/L (5-34); Albumin 1.7 g/dL (3.4-4.8); Alkaline Phosphatase 115 U/L (40-110); Anion Gap 13 mmol/L (10-20); BUN (Urea Nitrogen) 15 mg/dL (9.8-20.1); Bilirubin, Total 0.3 mg/dL (0.2-1.2); Calc. Creatinine Clearance 50 mL/min (70-130); Calcium 6.9 mg/dL (7.8-10.44); Carbon Dioxide 17 mmol/L (23-31); Chloride 109 mmol/L (98-107); Estimated GFR 74; Glucose 70 mg/dL (83-110); Magnesium 1.3 mg/dL (1.6-2.6); Potassium 3.7 mmol/L (3.5-5.1); Protein, Total 4.7 g/dL (5.8-8.1); Sodium 135 mmol/L (136-145)
[2024-02-05] MEDS: Loratadine 10 MG TAB PO SCH (10:30)
[2024-02-05] MEDS: Pantoprazole DR 40 MG TAB PO SCH (10:30)
[2024-02-05] MEDS: Megestrol Acetate 800 MG/20 ML UDCUP PO SCH (10:30)
[2024-02-05] MEDS: Magnesium Sulfate In Water 4 GM in Premix 1 BAG IVPB SCH (10:31)
[2024-02-05] MEDS: Sertraline 100 MG TAB PO SCH (10:31)
[2024-02-05] MEDS: cefTRIAXone\\ROCEPHIN 1 GM in Sodium Chloride 0.9% 100 ML IVPB SCH (10:32)
[2024-02-05] MEDS: Sodium Chloride 0.9% 1,000 ML IV SCH (10:32)
[2024-02-05] MEDS: Ondansetron PF 4 MG/2 ML Vial IVP PRN (10:53)
[2024-02-06 07:22] LABS: Anion Gap 9 mmol/L (10-20); BUN (Urea Nitrogen) 10 mg/dL (9.8-20.1); Calc. Creatinine Clearance 55 mL/min (70-130); Calcium 6.5 mg/dL (7.8-10.44); Carbon Dioxide 22 mmol/L (23-31); Chloride 109 mmol/L (98-107); Estimated GFR 83; Glucose 73 mg/dL (83-110); Magnesium 1.7 mg/dL (1.6-2.6); Potassium 3.5 mmol/L (3.5-5.1); Sodium 136 mmol/L (136-145)
[2024-02-06] MEDS ORDERED: FLU (Fluad Triv) TS24-25 (65UP)/MF59C/PF 45 MCG/0.5 ML Syringe IM ONE (09:00)
[2024-02-06] MEDS: Calcium Carbonate 500 MG ChewTAB PO SCH ×2 (12:28→20:48)
[2024-02-07 04:49] LABS: Hematocrit 29.5 % (36.0-47.0); Hemoglobin 9.6 g/dL (12.0-16.0)
[2024-02-07 09:52] VITALS: BP 154/70; TEMP 98.3
== END 2024-02-07 13:03 | disposition home or self-care (01) | DRG 689 ==
LOC: ERS 03:43 → ERHOLD 05:48 → OBSVTOIN 11:14 → 2NO 17:33
PROVIDERS: ADMIT Internal Medicine; ATTEND Family Medicine
DX: N39.0 Urinary tract infection, site not specified (principal); G93.41 Metabolic encephalopathy; N17.9 Acute kidney failure, unspecified; E87.20 Acidosis, unspecified; I13.0 Hypertensive heart and chronic kidney disease with heart failure and stage 1 through stage 4 chronic kidney disease, or unspecified chronic kidney disease; E83.42 Hypomagnesemia; N18.9 Chronic kidney disease, unspecified; Z79.899 Other long term (current) drug therapy; E78.5 Hyperlipidemia, unspecified; I50.9 Heart failure, unspecified; Z90.710 Acquired absence of both cervix and uterus; Z98.890 Other specified postprocedural states
CPT/HCPCS: 36415; 51701; 71045; 80048; 80053; 81001; 83605; 83690; 83735; 83880; 84145; 84443; 84484; 85014; 85018; 85025; 85610; 85730; 87040; 87077; 87086; 87186; 93005; 94760; 96372; 96374; 96375; G0378; J0696; J2405; J3475; J7030

== ENCOUNTER 2024-02-25 15:58 | Inpatient (IN) | payer MEDICARE, OTHER ==
[~2024-02-25 15:58] MED LIST: Iopamidol-370 76% 500 ML MDV (1 ML CHARGE) ONE
[2024-02-25] MEDS ORDERED: Ondansetron PF 4 MG/2 ML Vial ONE (16:36)
[2024-02-25 16:53] LABS: #Basophils 0.07 10x3/uL (0.0-0.2); #Eosinophils Less than 0.03 10x3/uL (0.0-0.7); %Basophils 0.6 % (0.0-1.0); %Eosinophils 0.1 % (0.0-10.0); %Lymphocytes 18.7 % (21.0-51.0); %Monocytes 6.8 % (0.0-10.0); %Neutrophils 72.8 % (42.0-75.0); Hematocrit 28.9 % (36.0-47.0); Hemoglobin 9.3 g/dL (12.0-16.0); Mean Corpuscular HGB CONC 32.2 g/dL (32.0-36.0); Mean Corpuscular Hemoglobin 31.2 pg (27.0-31.0); Mean Platelet Volume 8.7 fL (7.4-10.4); Platelet Count 532 10x3/uL (130-400); RBC Distribution Width 17.8 % (11.5-14.5); Red Blood Cell (RBC) Count 2.98 mill/uL (4.20-5.40)
[2024-02-25 17:10] LABS: ALT (SGPT) 16 U/L (8-55); AST (SGOT) 29 U/L (5-34); Albumin 1.9 g/dL (3.4-4.8); Alkaline Phosphatase 204 U/L (40-110); Anion Gap 15 mmol/L (10-20); BUN (Urea Nitrogen) 26 mg/dL (9.8-20.1); Bilirubin, Total 0.3 mg/dL (0.2-1.2); CK (CPK) 113 U/L (29-168); Calc. Creatinine Clearance 0 mL/min (70-130); Calcium 7.2 mg/dL (7.8-10.44); Carbon Dioxide 22 mmol/L (23-31); Chloride 105 mmol/L (98-107); Estimated GFR 69; Glucose 82 mg/dL (83-110); Lipase 9 U/L (8-78); Magnesium 1.4 mg/dL (1.6-2.6); Potassium 3.8 mmol/L (3.5-5.1); Protein, Total 5.9 g/dL (5.8-8.1); Sodium 138 mmol/L (136-145)
[2024-02-25 17:15] LABS: Troponin I Less than 0.010 ng/mL (< 0.028)
[2024-02-25] MEDS ORDERED: Electrolyte Replacement Protocol 1 EACH FS PRN (22:20)
[2024-02-25] MEDS ORDERED: Ondansetron ODT 4 MG TAB PO PRN (22:29)
[2024-02-25] MEDS ORDERED: Acetaminophen 650 MG Suppository PR PRN (22:29)
[2024-02-26 00:05] VITALS: BMI 21.9
[2024-02-26] MEDS ORDERED: Mirtazapine 15 MG TAB PO SCH (00:15)
[2024-02-26] MEDS: Acetaminophen 325 MG TAB PO SCH (00:28)
[2024-02-26] MEDS: Albumin 25% 25 GM (100 mL) BOT IVPB SCH ×2 (00:30)
[2024-02-26] MEDS: Magnesium Sulfate In Water 4 GM in Premix 1 BAG IVPB SCH (01:38)
[2024-02-26] MEDS: Ondansetron PF 4 MG/2 ML Vial IVP PRN (01:46)
[2024-02-26] MEDS: Levothyroxine Sodium 50 MCG TAB PO SCH (05:49)
[2024-02-26 07:06] LABS: #Basophils 0.04 10x3/uL (0.0-0.2); %Basophils 0.5 % (0.0-1.0); %Eosinophils 0.9 % (0.0-10.0); %Lymphocytes 26.3 % (21.0-51.0); %Monocytes 7.1 % (0.0-10.0); Hematocrit 25.4 % (36.0-47.0); Mean Corpuscular HGB CONC 31.5 g/dL (32.0-36.0); Mean Corpuscular Hemoglobin 31.1 pg (27.0-31.0); Mean Corpuscular Volume 98.8 fL (78.0-98.0); Mean Platelet Volume 8.8 fL (7.4-10.4); Platelet Count 414 10x3/uL (130-400); RBC Distribution Width 17.8 % (11.5-14.5); Red Blood Cell (RBC) Count 2.57 mill/uL (4.20-5.40)
[2024-02-26] MEDS ORDERED: Levothyroxine Sodium 50 MCG TAB PO SCH (07:30)
[2024-02-26 07:39] LABS: Anion Gap 13 mmol/L (10-20); BUN (Urea Nitrogen) 19 mg/dL (9.8-20.1); Calc. Creatinine Clearance 56 mL/min (70-130); Carbon Dioxide 22 mmol/L (23-31); Chloride 107 mmol/L (98-107); Estimated GFR 83; Glucose 90 mg/dL (83-110); Magnesium 2.6 mg/dL (1.6-2.6); Potassium 3.5 mmol/L (3.5-5.1); Sodium 138 mmol/L (136-145)
[2024-02-26] MEDS: Sertraline 100 MG TAB PO SCH (08:50)
[2024-02-26] MEDS: Pantoprazole DR 40 MG TAB PO SCH (08:50)
[2024-02-26] MEDS: Megestrol Acetate 800 MG/20 ML UDCUP PO SCH (08:50)
[2024-02-26] MEDS: Gabapentin 100 MG CAP PO SCH (08:50)
[2024-02-26] MEDS: Magnesium Oxide 400 MG TAB PO SCH (08:50)
[2024-02-26] MEDS: lamoTRIgine 100 MG TAB PO SCH (08:51)
[2024-02-26] MEDS: Potassium Chloride 20 MEQ TAB PO SCH (08:51)
[2024-02-26] MEDS: Loperamide HCl 2 MG CAP PO SCH (17:37)
[2024-02-26] MEDS: Mirtazapine 15 MG TAB PO SCH (20:52)
[2024-02-26] MEDS: Atorvastatin Calcium 10 MG TAB PO SCH (20:52)
[2024-02-26] MEDS ORDERED: Pravastatin Sodium 40 MG TAB PO SCH (21:00)
[2024-02-27 17:50] LABS: #Basophils 0.06 10x3/uL (0.0-0.2); %Basophils 0.5 % (0.0-1.0); %Eosinophils 1.8 % (0.0-10.0); %Lymphocytes 27.1 % (21.0-51.0); %Monocytes 6.6 % (0.0-10.0); %Neutrophils 62.3 % (42.0-75.0); Hematocrit 26.9 % (36.0-47.0); Hemoglobin 8.7 g/dL (12.0-16.0); Mean Corpuscular HGB CONC 32.3 g/dL (32.0-36.0); Mean Corpuscular Hemoglobin 31.1 pg (27.0-31.0); Mean Corpuscular Volume 96.1 fL (78.0-98.0); Mean Platelet Volume 8.9 fL (7.4-10.4); Platelet Count 525 10x3/uL (130-400); RBC Distribution Width 17.9 % (11.5-14.5)
[2024-02-27 18:08] LABS: Anion Gap 13 mmol/L (10-20); BUN (Urea Nitrogen) 15 mg/dL (9.8-20.1); Calc. Creatinine Clearance 60 mL/min (70-130); Carbon Dioxide 21 mmol/L (23-31); Chloride 107 mmol/L (98-107); Estimated GFR 88; Glucose 75 mg/dL (83-110); Potassium 4.6 mmol/L (3.5-5.1); Sodium 136 mmol/L (136-145)
[2024-02-28 08:03] LABS: #Basophils 0.07 10x3/uL (0.0-0.2); %Basophils 0.9 % (0.0-1.0); %Eosinophils 3.6 % (0.0-10.0); %Lymphocytes 36.5 % (21.0-51.0); %Monocytes 7.7 % (0.0-10.0); %Neutrophils 48.2 % (42.0-75.0); Hematocrit 24.3 % (36.0-47.0); Hemoglobin 7.5 g/dL (12.0-16.0); Mean Corpuscular HGB CONC 30.9 g/dL (32.0-36.0); Mean Corpuscular Volume 100.4 fL (78.0-98.0); Mean Platelet Volume 8.8 fL (7.4-10.4); Platelet Count 401 10x3/uL (130-400); RBC Distribution Width 18.1 % (11.5-14.5); Red Blood Cell (RBC) Count 2.42 mill/uL (4.20-5.40)
[2024-02-28 08:24] LABS: Anion Gap 9 mmol/L (10-20); BUN (Urea Nitrogen) 11 mg/dL (9.8-20.1); Calc. Creatinine Clearance 52 mL/min (70-130); Calcium 7.9 mg/dL (7.8-10.44); Carbon Dioxide 22 mmol/L (23-31); Chloride 109 mmol/L (98-107); Estimated GFR 83; Glucose 98 mg/dL (83-110); Potassium 4.1 mmol/L (3.5-5.1); Sodium 136 mmol/L (136-145)
[2024-02-28] MEDS: Aspirin Chewable 81 MG TAB PO SCH (08:53)
[2024-02-29 06:09] LABS: Anion Gap 10 mmol/L (10-20); BUN (Urea Nitrogen) 11 mg/dL (9.8-20.1); Calc. Creatinine Clearance 55 mL/min (70-130); Calcium 8.1 mg/dL (7.8-10.44); Carbon Dioxide 21 mmol/L (23-31); Chloride 110 mmol/L (98-107); Estimated GFR 87; Glucose 69 mg/dL (83-110); Potassium 4.2 mmol/L (3.5-5.1); Sodium 137 mmol/L (136-145)
[2024-02-29 06:10] LABS: Hematocrit 29.3 % (36.0-47.0); Hemoglobin 9.1 g/dL (12.0-16.0); Mean Corpuscular HGB CONC 31.1 g/dL (32.0-36.0); Mean Corpuscular Hemoglobin 31.8 pg (27.0-31.0); Mean Corpuscular Volume 102.4 fL (78.0-98.0); Mean Platelet Volume 9.5 fL (7.4-10.4); Platelet Count 385 10x3/uL (130-400); RBC Distribution Width 18.1 % (11.5-14.5); Red Blood Cell (RBC) Count 2.86 mill/uL (4.20-5.40)
[2024-02-29 07:40] VITALS: TEMP 97.4
[2024-02-29 07:57] LABS: Band 6 % (5-11); Burr Cells SLIGHT = 2-5 cells HPF (0-1); Eosinophils 1 % (0-10); Lymphocytes 30 % (21-51); Macrocytosis SLIGHT = 6-15 cells HPF (0-5); Monocytes 1 % (0-10); Neutrophil 60 % (42-75); Platelet Adequacy Comment Platelets Normal; Polychromasia SLIGHT = 2-3 cells HPF (0-2); Reactive Lymphocytes 1 % (0-10)
[2024-02-29 08:58] VITALS: BP 162/83
[2024-02-29] MEDS: FLU (Fluad Triv) TS24-25 (65UP)/MF59C/PF 45 MCG/0.5 ML Syringe IM ONE (09:59)
== END 2024-02-29 10:57 | disposition home health service (06) | DRG 386 ==
LOC: ERS 15:58 → T4-B 22:11 → OBSVTOIN 22:11
PROVIDERS: ADMIT Student in an Organized Health Care Education/Training Program; ATTEND Internal Medicine
DX: K51.50 Left sided colitis without complications (principal); I50.32 Chronic diastolic (congestive) heart failure; E88.09 Other disorders of plasma-protein metabolism, not elsewhere classified; E03.9 Hypothyroidism, unspecified; R63.0 Anorexia; F03.A0 Unspecified dementia, mild, without behavioral disturbance, psychotic disturbance, mood disturbance, and anxiety; F32.A Depression, unspecified; E86.0 Dehydration; Z96.651 Presence of right artificial knee joint; E78.5 Hyperlipidemia, unspecified; I11.0 Hypertensive heart disease with heart failure; Z90.710 Acquired absence of both cervix and uterus; Z98.890 Other specified postprocedural states; Z82.49 Family history of ischemic heart disease and other diseases of the circulatory system; Z88.5 Allergy status to narcotic agent; Z88.8 Allergy status to other drugs, medicaments and biological substances; Z68.20 Body mass index [BMI] 20.0-20.9, adult
CPT/HCPCS: 36415; 71045; 74177; 80048; 80053; 82550; 83605; 83690; 83735; 83880; 84443; 84484; 85025; 90653; 93005; 93306; 96361; 96374; J2405; J3475; P9047; Q9967

== ENCOUNTER 2024-03-13 10:05 | Observation (INO) | payer MEDICARE ==
[2024-03-13] MEDS ORDERED: Iopamidol-370 76% 500 ML MDV (1 ML CHARGE) ONE (10:45)
[2024-03-13] MEDS ORDERED: Aspirin Chewable 81 MG TAB ONE (12:59)
[2024-03-13 14:00] LABS: Prothrombin Time 13.5 sec (12.0-14.7)
[2024-03-13 14:01] LABS: PTT 32.2 sec (22.9-36.1)
[2024-03-13 14:31] LABS: Hematocrit 29.4 % (36.0-47.0); Hemoglobin 9.3 g/dL (12.0-16.0); Mean Corpuscular HGB CONC 31.6 g/dL (32.0-36.0); Mean Corpuscular Hemoglobin 31.3 pg (27.0-31.0); Mean Platelet Volume 9.5 fL (7.4-10.4); Platelet Count 464 10x3/uL (130-400); RBC Distribution Width 16.7 % (11.5-14.5); Red Blood Cell (RBC) Count 2.97 mill/uL (4.20-5.40); Troponin I Less than 0.010 ng/mL (< 0.028)
[2024-03-13 14:42] LABS: ALT (SGPT) 12 U/L (8-55); AST (SGOT) 24 U/L (5-34); Albumin 2.5 g/dL (3.4-4.8); Alkaline Phosphatase 95 U/L (40-110); Anion Gap 14 mmol/L (10-20); BUN (Urea Nitrogen) 17 mg/dL (9.8-20.1); Bilirubin, Total 0.2 mg/dL (0.2-1.2); Calc. Creatinine Clearance 0 mL/min (70-130); Calcium 8.2 mg/dL (7.8-10.44); Carbon Dioxide 22 mmol/L (23-31); Chloride 105 mmol/L (98-107); Estimated GFR 88; Glucose 83 mg/dL (83-110); Potassium 3.7 mmol/L (3.5-5.1); Protein, Total 6.5 g/dL (5.8-8.1); Sodium 137 mmol/L (136-145)
[2024-03-13 14:43] LABS: Anisocytosis SLIGHT = 6-15 cells HPF (0-5); Band 10 % (5-11); Eosinophils 3 % (0-10); Helmet Cells SLIGHT = 2-5 cells HPF (0-1); Hypochromia SLIGHT = 6-15 cells HPF (0-5); Lymphocytes 21 % (21-51); Macrocytosis SLIGHT = 6-15 cells HPF (0-5); Metamyelocyte 4 % (0-0); Monocytes 10 % (0-10); Neutrophil 48 % (42-75); Platelet Adequacy Comment Platelets Increased; Polychromasia SLIGHT = 2-3 cells HPF (0-2); Reactive Lymphocytes 2 % (0-10)
[2024-03-13] MEDS ORDERED: Ondansetron ODT 4 MG TAB PO PRN (16:04)
[2024-03-13] MEDS ORDERED: hydrALAZINE 20 MG/ML VIAL SLOW IVP PRN (16:04)
[2024-03-13] MEDS ORDERED: Acetaminophen 650 MG Suppository PR PRN (16:04)
[2024-03-13] MEDS ORDERED: Acetaminophen 325 MG TAB PO PRN (16:04)
[2024-03-13 17:04] VITALS: BMI 20.5
[2024-03-13 20:29] LABS: Troponin I Less than 0.010 ng/mL (< 0.028)
[2024-03-13] MEDS: lamoTRIgine 100 MG TAB PO SCH (23:21)
[2024-03-13] MEDS: Gabapentin 100 MG CAP PO SCH (23:21)
[2024-03-13] MEDS: Atorvastatin Calcium 40 MG TAB PO SCH (23:21)
[2024-03-14 01:13] LABS: Troponin I Less than 0.010 ng/mL (< 0.028)
[2024-03-14 04:42] LABS: Hematocrit 26.3 % (36.0-47.0); Hemoglobin 8.7 g/dL (12.0-16.0); Mean Corpuscular HGB CONC 33.1 g/dL (32.0-36.0); Mean Corpuscular Hemoglobin 32.1 pg (27.0-31.0); Mean Platelet Volume 9.2 fL (7.4-10.4); Platelet Count 402 10x3/uL (130-400); RBC Distribution Width 16.3 % (11.5-14.5); Red Blood Cell (RBC) Count 2.71 mill/uL (4.20-5.40)
[2024-03-14 04:46] LABS: Anion Gap 11 mmol/L (10-20); BUN (Urea Nitrogen) 14 mg/dL (9.8-20.1); Calc. Creatinine Clearance 63 mL/min (70-130); Calcium 7.7 mg/dL (7.8-10.44); Carbon Dioxide 21 mmol/L (23-31); Cardiac Risk 3.9 (Less than 4.5); Chloride 108 mmol/L (98-107); Cholesterol 116 mg/dl (< 200 Desired); Estimated GFR 90; Glucose 82 mg/dL (83-110); HDL Cholesterol 30 mg/dL (>60 Neg Risk); LDL Cholesterol, Calculated 55 mg/dL; Potassium 3.7 mmol/L (3.5-5.1); Sodium 136 mmol/L (136-145); Triglycerides 154 mg/dL (Less than 150)
[2024-03-14 05:51] LABS: Anisocytosis SLIGHT = 6-15 cells HPF (0-5); Band 5 % (5-11); Dohle Bodies SLIGHT; Eosinophils 3 % (0-10); Hypochromia SLIGHT = 6-15 cells HPF (0-5); Lymphocytes 27 % (21-51); Metamyelocyte 4 % (0-0); Monocytes 3 % (0-10); Myelocyte 4 % (0-0); Neutrophil 54 % (42-75); Platelet Adequacy Comment Platelets Normal; Polychromasia SLIGHT = 2-3 cells HPF (0-2); Toxic Granulation SLIGHT
[2024-03-14 08:13] VITALS: TEMP 98.1
[2024-03-14] MEDS: Loratadine 10 MG TAB PO SCH (09:06)
[2024-03-14] MEDS: Lorazepam 2 MG/ML VIAL SLOW IVP SCH (09:06)
[2024-03-14] MEDS: Levothyroxine Sodium 50 MCG TAB PO SCH (09:06)
[2024-03-14] MEDS: lamoTRIgine 100 MG TAB PO SCH (09:07)
[2024-03-14] MEDS: Aspirin 81 mg Enteric Coated Tablet PO SCH (09:07)
[2024-03-14] MEDS: Sertraline 100 MG TAB PO SCH (09:07)
[2024-03-14] MEDS: Gabapentin 100 MG CAP PO SCH (09:07)
[2024-03-14] MEDS: Pantoprazole DR 40 MG TAB PO SCH (09:07)
[2024-03-14 10:03] VITALS: BMI 20.5
[2024-03-14] MEDS ORDERED: Magnevist 469MG/ML 20 ML VIAL ONE (11:05)
[2024-03-14 11:31] VITALS: BP 137/75
== END 2024-03-14 16:02 | disposition home or self-care (01) ==
LOC: ERS 10:05 → ERHOLD 15:56 → INTOOBSV 15:56 → 2SE 21:26
PROVIDERS: ADMIT Hospitalist; ATTEND Family Medicine
DX: R47.01 Aphasia (principal); I11.0 Hypertensive heart disease with heart failure; I50.32 Chronic diastolic (congestive) heart failure; F03.A0 Unspecified dementia, mild, without behavioral disturbance, psychotic disturbance, mood disturbance, and anxiety; F32.A Depression, unspecified; K52.9 Noninfective gastroenteritis and colitis, unspecified; E78.5 Hyperlipidemia, unspecified; R41.82 Altered mental status, unspecified; D64.9 Anemia, unspecified; R53.81 Other malaise; Z96.651 Presence of right artificial knee joint; Z98.890 Other specified postprocedural states; Z98.49 Cataract extraction status, unspecified eye; Z90.710 Acquired absence of both cervix and uterus; Z79.890 Hormone replacement therapy; Z79.82 Long term (current) use of aspirin; Z79.899 Other long term (current) drug therapy; Z88.5 Allergy status to narcotic agent; Z88.8 Allergy status to other drugs, medicaments and biological substances
CPT/HCPCS: 70450; 70496; 70498; 70553; 71045; 76376; 80048; 80053; 80061; 82962; 84484 ×3; 85025 ×2; 85610; 85730; 86850; 86900; 86901; 93005; 94760; 96374; G0378 ×2; J2060; Q9967; 36415; 36416